=== PATIENT | female | born 1975 | race Caucasian/White ===

== ENCOUNTER 2024-05-09 00:42 | Observation (INO) ==
[2024-05-09 01:34] LABS: ABS Lymphocytes 1.5 10^3/uL (1.0-4.8); ABS Monocytes 0.8 10^3/uL (0.0-0.9); ABS Neutrophils 9.6 10^3/uL (1.5-7.6); Eosinophil % 0.3 %; Hematocrit 36.7 % (35-45); Hemoglobin 12.3 g/dL (11.5-14.3); Lymphocyte % 12.6 %; Mean Corpuscular Hemoglobin 30.6 pg (27-33); Mean Corpuscular Hgb Conc 33.7 g/dL (31-36); Mean Platelet Volume 8.7 fL (7.5-11.2); Platelet Count 341 10^3/uL (150-450); Red Blood Count 4.03 10^6/uL (3.63-4.92); Red Cell Distribution Width 12.8 % (12-17)
[2024-05-09 01:43] LABS: INR 1.1 (0.85-1.14)
[2024-05-09 02:05] LABS: Albumin 4.2 g/dL (3.5-5.7); Albumin/Globulin Ratio 1.8 (1-3); Calcium 9.1 mg/dL (8.6-10.3); Creatinine, Serum 1.02 mg/dL (0.51-0.95); Globulin 2.3 g/dL (2-4); Potassium 3.8 mmol/L (3.5-5.0); Total Bilirubin 0.7 mg/dL (0.2-1.0); Total Protein 6.5 g/dL (6.4-8.9)
[2024-05-09] MEDS: Acetaminophen IV 1 GM/100ML 1,000 MG/100 ML BAG IV ONE (02:17)
[2024-05-09] MEDS: Morphine 2 MG/ML SYRINGE IV ONE (02:17)
[2024-05-09 02:44] LABS: High Sensitivity Troponin 1 Hr 3 pg/mL (<15)
[2024-05-09] MEDS: Morphine 4 MG/ML VIAL (1 ml) IV ONE ×4 (04:15→10:28)
[2024-05-09] MEDS: Iohexol 350 (CONTRAST) 500 ML MDV IV ONE (04:39)
[2024-05-09] MEDS: NS 0.9% 1000 ml BAG 1,000 ML IV ONE (06:45)
[2024-05-09] MEDS: Lactated Ringers 1000 ml BAG IV.FLUID IV ONE (08:51)
[2024-05-09] MEDS: Ondansetron 4 mg VIAL 2 MG/ML 2 ml VIAL IV ONE ×2 (08:51→11:28)
[2024-05-09] MEDS ORDERED: Morphine 4 MG/ML VIAL (1 ml) ONE (10:13)
[2024-05-09] MEDS ORDERED: Ondansetron 4 mg VIAL 2 MG/ML 2 ml VIAL IV PRN (11:38)
[2024-05-09] MEDS ORDERED: LevoCETirizine 5 mg TAB (NF) PO PRN (11:41)
[2024-05-09] MEDS ORDERED: Albuterol HFA INHALER 8 gm MDI INH PRN (11:41)
[2024-05-09] MEDS ORDERED: Albuterol/Ipratropium NEB.SOL (2.5/0.5 MG) 3 ML NEB.SOLN INH PRN (11:41)
[2024-05-09] MEDS: Sodium Phosphate ADULT ENEMA 133 ML BTL PR ONE (12:28)
[2024-05-09] MEDS: Prochlorperazine 5 mg/ml 2 ml VIAL (10 mg) IV PRN (12:36)
[2024-05-09] MEDS: Lactated Ringers 1000 ml BAG 1,000 ML IV SCH (12:37)
[2024-05-09] MEDS: NORGESTIMATE ETHINYL ESTRADIOL PO SCH (21:09)
[2024-05-09] MEDS: [UNRECOGNIZED DRUG - OTHER] PO SCH (21:09)
[2024-05-10 06:13] LABS: Creatinine, Serum 0.84 mg/dL (0.51-0.95); Magnesium 2.4 mg/dL (1.9-2.7); Potassium 4.1 mmol/L (3.5-5.0); eGFR CKD-EPI 84.6 (>60)
[2024-05-10 09:42] VITALS: BP 109/81
[2024-05-12 16:26] LABS: Tissue Transglutaminase IgA Ab 2.3 U/mL
[2024-05-12 22:48] LABS: Immunoglobulin A 197 mg/dL (61 - 356)
== END 2024-05-10 10:05 | disposition home or self-care (01) ==
LOC: ED 00:42 → EDHOLD 00:42 → MED 12:53
PROVIDERS: ADMIT Student in an Organized Health Care Education/Training Program; ATTEND Student in an Organized Health Care Education/Training Program